=== PATIENT | female | born 1985 | race American Indian/Alaskan Native ===

== ENCOUNTER 2016-10-23 03:58 | Emergency (ER) | payer OTHER ==
[2016-10-23] MEDS ORDERED: MOTRIN PO ONE (04:27)
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
[2016-10-23 06:05] LABS: Basophils % (Auto) 0.7 % (0.0-1.8); Eosinophils % (Auto) 4.1 % (0.0-4.3); Mean Corpuscular HGB Conc 29 % (30-34); Platelet Count 185 K/mm3 (140-440); Red Blood Count 4.58 M/mm3 (3.65-5.03); White Blood Count 7.4 K/mm3 (4.5-11.0)
[2016-10-23 06:21] LABS: Hematocrit 28.2 % (30.3-42.9); Hemoglobin 8.2 gm/dl (10.1-14.3); Mean Corpuscular Hemoglobin 18 pg (28-32); Mean Corpuscular Volume 62 fl (79-97); Red Cell Distribution Width 20.2 % (13.2-15.2)
[2016-10-23 06:25] LABS: Anion Gap 17 mmol/L; BUN/Creatinine Ratio 16.66; Blood Urea Nitrogen 10 mg/dL (7-17); Calcium 8.7 mg/dL (8.4-10.2); Carbon Dioxide 24 mmol/L (22-30); Chloride 102.4 mmol/L (98-107); Glucose 90 mg/dL (65-100); Potassium 4.1 mmol/L (3.6-5.0); Sodium 139 mmol/L (137-145)
[2016-10-23 07:16] VITALS: BP 130/90
--- NOTE | 2016-10-23 09:48 | XRay Report ---
ROUTINE CHEST, TWO VIEWS: HISTORY: chest pain. The trachea, heart, mediastinal contour, lung nails and bony thorax are unremarkable. IMPRESSION: Unremarkable chest x-ray.
== END 2016-10-23 07:18 | disposition home or self-care (01) ==
LOC: ED 03:58
DX: R07.89 Other chest pain (principal); M25.512 Pain in left shoulder; V48.6XXA Car passenger injured in noncollision transport accident in traffic accident, initial encounter; W22.12XA Striking against or struck by front passenger side automobile airbag, initial encounter; Y93.89 Activity, other specified; Y99.9 Unspecified external cause status; Y92.410 Unspecified street and highway as the place of occurrence of the external cause
CPT/HCPCS: 36415; 71020; 80048; 84484; 85025; 93005; 93010